=== PATIENT | male | born 1965 | race Caucasian/White ===

== ENCOUNTER 2022-08-14 21:14 | Inpatient (IN) | payer OTHER ==
[~2022-08-14] VITALS: Ht 185.4 cm; Wt 156.2 kg
[2022-08-14 21:21] VITALS: BP_SYST 114
[2022-08-14 23:18] LABS: BASOPHILS # (AUTO) 0.1 K/uL (0.0-0.2); EOSINOPHILS # (AUTO) 0.1 K/uL (0.0-0.4); EOSINOPHILS % (AUTO) 1.9 % (0.0-4.0); HEMOGLOBIN 15.2 g/dL (14.0-18.0); LYMPHOCYTES # (AUTO) 1.6 K/uL (1.0-5.5); LYMPHOCYTES % (AUTO) 27.3 % (20.5-51.5); MEAN CORPUSCULAR HEMOGLOBIN 35 pg (27-31); MEAN CORPUSCULAR HGB CONC 33 % (32-36); MEAN CORPUSCULAR VOLUME 104 fL (79.0-98.0); MONOCYTES # (AUTO) 0.7 K/uL (0.0-1.0); NEUTROPHILS # (AUTO) 3.4 K/uL (1.8-7.7); NEUTROPHILS % (AUTO) 57.8 % (40.0-70.0); PLATELET COUNT (AUTO) 177 K/uL (130-430); RED BLOOD CELL COUNT(AUTO) 4.41 MIL/uL (4.2-6.2); RED CELL DISTRIBUTION WIDTH 15.8 % (9.0-15.0); WHITE BLOOD COUNT (AUTO) 5.9 K/uL (4.8-10.8)
[2022-08-14 23:21] LABS: ANION GAP 4 (5-15); CALCIUM 8.5 mg/dL (8.4-11.0); CHLORIDE 99 mmol/L (98-107); CREATININE 2.06 mg/dL (0.55-1.30); GLUCOSE 141 mg/dL (70-99); UREA NITROGEN, BLOOD 33 mg/dL (8-21)
[2022-08-14 23:30] LABS: ALANINE AMINOTRANSFERASE 20 U/L (12-78); ALBUMIN 3.1 g/dL (3.4-4.8); ASPARTATE AMINOTRANSFERASE 16 U/L (10-37); TOTAL BILIRUBIN 0.6 mg/dL (0.0-1.0)
[2022-08-14 23:36] LABS: GFR AFRICAN AMERICAN 43 mL/min (>90)
[2022-08-15] MEDS ORDERED: ACETAMINOPHEN 500 MG TABLET PO ONE (03:45)
[2022-08-15] MEDS ORDERED: ACETAMINOPHEN 500 MG TABLET ONE (03:47)
[2022-08-15] MEDS ORDERED: APIX5TAB4 PO (08:53)
[2022-08-15] MEDS ORDERED: AMIO200T66 PO (08:53)
[2022-08-15] MEDS ORDERED: FURO80TA86 PO (08:54)
[2022-08-15] MEDS ORDERED: FURO-149 PO (08:54)
[2022-08-15] MEDS ORDERED: LIP40 PO (08:54)
[2022-08-15] MEDS ORDERED: CARV25TA55 PO (08:54)
[2022-08-15] MEDS ORDERED: MONT-40 PO (08:54)
[2022-08-15] MEDS ORDERED: DAPA10TA PO (08:54)
[2022-08-15] MEDS ORDERED: SPIRIVA INH (08:54)
[2022-08-15] MEDS ORDERED: SACU1TAB PO (08:54)
[2022-08-15] MEDS ORDERED: CARV12.548 PO (08:54)
[2022-08-15] MEDS ORDERED: FLO44 INH (08:54)
[2022-08-15] MEDS: FUROSEMIDE 40 MG/4 ML VIAL IVP SCH ×2 (11:30→22:39)
[2022-08-15] MEDS: FLUTICASONE 44 mcg/ACTUATION MDI AER.W.ADAP INH SCH (11:30)
[2022-08-15] MEDS: MONTELUKAST 10 MG TABLET PO SCH (11:30)
[2022-08-15] MEDS: SACUBITRIL/VALSARTAN 24 MG-26 MG 1 TABLET PO SCH (11:30)
[2022-08-15] MEDS ORDERED: FUROSEMIDE 40 MG/4 ML VIAL IVP ONE ×2 (11:30)
[2022-08-15] MEDS ORDERED: AMIODARONE HCL 200 MG TABLET PO SCH (11:30)
[2022-08-15] MEDS: CARVEDILOL 12.5 MG TABLET (COREG) PO SCH (11:30)
[2022-08-15] MEDS: ATORVASTATIN 20 MG TABLET PO SCH (11:30)
[2022-08-15] MEDS ORDERED: IPRATROPIUM/ALBUTEROL SULFATE 3 ML AMPUL.NEB (DUONEB) INH PRN (11:45)
[2022-08-15 13:12] VITALS: BP_SYST 120
[2022-08-15] MEDS: ISOSORBIDE MONONITRATE 30 MG TAB.ER.24H PO SCH (14:00)
[2022-08-15] MEDS ORDERED: traMADol HCL HCL 50 MG TABLET (ULTRAM) PO PRN (18:15)
[2022-08-15] MEDS ORDERED: ACETAMINOPHEN 650 MG/20.3 ML UDC GT PRN (18:15)
[2022-08-15] MEDS ORDERED: CARVEDILOL 6.25 MG TABLET (COREG) ONE (19:35)
[2022-08-15] MEDS ORDERED: FUROSEMIDE 40 MG/4 ML VIAL ONE (19:35)
[2022-08-15] MEDS ORDERED: ACETAMINOPHEN 325 MG TABLET ONE (19:36)
[2022-08-15] MEDS ORDERED: DIPHENHYDRAMINE HCL 50 MG CAPSULE PO ONE (21:15)
[2022-08-15] MEDS: CARVEDILOL 25 MG TABLET (COREG) PO SCH (22:39)
[2022-08-16] VITALS: BP_SYST 137
[2022-08-16 00:58] VITALS: BP_SYST 138
[2022-08-16 07:05] LABS: BASOPHILS % (AUTO) 0.8 % (0.0-2.0); EOSINOPHILS # (AUTO) 0.1 K/uL (0.0-0.4); EOSINOPHILS % (AUTO) 1.7 % (0.0-4.0); HEMATOCRIT 46.2 % (36-54); HEMOGLOBIN 15.2 g/dL (14.0-18.0); LYMPHOCYTES # (AUTO) 1.1 K/uL (1.0-5.5); LYMPHOCYTES % (AUTO) 19.3 % (20.5-51.5); MEAN CORPUSCULAR HEMOGLOBIN 35 pg (27-31); MEAN CORPUSCULAR HGB CONC 33 % (32-36); MEAN CORPUSCULAR VOLUME 105 fL (79.0-98.0); MONOCYTES # (AUTO) 0.6 K/uL (0.0-1.0); MONOCYTES % (AUTO) 11.5 % (1.7-9.3); NEUTROPHILS # (AUTO) 3.7 K/uL (1.8-7.7); NEUTROPHILS % (AUTO) 66.7 % (40.0-70.0); PLATELET COUNT (AUTO) 159 K/uL (130-430); RED BLOOD CELL COUNT(AUTO) 4.41 MIL/uL (4.2-6.2); RED CELL DISTRIBUTION WIDTH 16.2 % (9.0-15.0); WHITE BLOOD COUNT (AUTO) 5.5 K/uL (4.8-10.8)
[2022-08-16 07:31] LABS: INR 1.1 (0.80-1.20)
[2022-08-16 07:50] LABS: ALBUMIN 3.3 g/dL (3.4-4.8); CALCIUM 8.2 mg/dL (8.4-11.0); CREATININE 1.95 mg/dL (0.55-1.30); PHOSPHORUS 4.1 mg/dL (2.7-4.5); THYROID STIMULATING HORMONE 2.18 uIu/mL (0.34-4.82); TOTAL BILIRUBIN 0.7 mg/dL (0.0-1.0)
[2022-08-16 08:00] VITALS: BP_SYST 139
[2022-08-16] MEDS: SACUBITRIL/VALSARTAN 24 MG-26 MG 1 TABLET PO SCH (08:48)
[2022-08-16] MEDS: FUROSEMIDE 40 MG/4 ML VIAL IVP SCH ×2 (08:49→22:03)
[2022-08-16] MEDS: CARVEDILOL 12.5 MG TABLET (COREG) PO SCH (08:49)
[2022-08-16] MEDS: ISOSORBIDE MONONITRATE 30 MG TAB.ER.24H PO SCH (08:49)
[2022-08-16] MEDS: MONTELUKAST 10 MG TABLET PO SCH (08:50)
[2022-08-16] MEDS: ATORVASTATIN 20 MG TABLET PO SCH (08:50)
[2022-08-16] MEDS ORDERED: NON-FORMULARY MEDICATION (Dapagliflozin Propanediol (Farxiga) 10 MG) PO SCH (09:00)
[2022-08-16] MEDS ORDERED: TIOTROPIUM BROMIDE 18 mcg/INHALATION (CAPSULE) INH SCH (09:00)
[2022-08-16] MEDS: FLUTICASONE 44 mcg/ACTUATION MDI AER.W.ADAP INH SCH (09:00)
[2022-08-16] MEDS ORDERED: APIXABAN 2.5 MG TABLET PO ONE (11:00)
[2022-08-16 13:21] VITALS: BP_SYST 115
[2022-08-16] MEDS: IPRATROPIUM BROM 0.5 MG/2.5 ML VIAL.NEB (ATROVENT) INH SCH ×2 (15:46→19:52)
[2022-08-16 21:00] VITALS: BP_SYST 137
[2022-08-16] MEDS: APIXABAN 2.5 MG TABLET PO SCH (22:01)
[2022-08-16] MEDS: CARVEDILOL 25 MG TABLET (COREG) PO SCH (22:03)
[2022-08-17] MEDS: IPRATROPIUM BROM 0.5 MG/2.5 ML VIAL.NEB (ATROVENT) INH SCH ×3 (01:01→13:27)
[2022-08-17 02:00] VITALS: BP_SYST 119
[2022-08-17 07:04] LABS: EOSINOPHILS # (AUTO) 0.1 K/uL (0.0-0.4); EOSINOPHILS % (AUTO) 2.4 % (0.0-4.0); HEMATOCRIT 47.3 % (36-54); HEMOGLOBIN 15.6 g/dL (14.0-18.0); LYMPHOCYTES # (AUTO) 1.1 K/uL (1.0-5.5); MEAN CORPUSCULAR HEMOGLOBIN 34 pg (27-31); MEAN CORPUSCULAR HGB CONC 33 % (32-36); MEAN CORPUSCULAR VOLUME 104 fL (79.0-98.0); MONOCYTES # (AUTO) 0.7 K/uL (0.0-1.0); NEUTROPHILS # (AUTO) 2.9 K/uL (1.8-7.7); NEUTROPHILS % (AUTO) 60.6 % (40.0-70.0); PLATELET COUNT (AUTO) 164 K/uL (130-430); RED BLOOD CELL COUNT(AUTO) 4.54 MIL/uL (4.2-6.2); RED CELL DISTRIBUTION WIDTH 15.7 % (9.0-15.0); WHITE BLOOD COUNT (AUTO) 4.8 K/uL (4.8-10.8)
[2022-08-17 07:17] LABS: CALCIUM 8.4 mg/dL (8.4-11.0); CREATININE 1.75 mg/dL (0.55-1.30)
[2022-08-17 08:00] VITALS: BP_SYST 131
[2022-08-17] MEDS: CARVEDILOL 12.5 MG TABLET (COREG) PO SCH (08:44)
[2022-08-17] MEDS: ISOSORBIDE MONONITRATE 30 MG TAB.ER.24H PO SCH (08:45)
[2022-08-17] MEDS: APIXABAN 2.5 MG TABLET PO SCH (08:45)
[2022-08-17] MEDS: ATORVASTATIN 20 MG TABLET PO SCH (08:45)
[2022-08-17] MEDS: FUROSEMIDE 40 MG/4 ML VIAL IVP SCH (08:46)
[2022-08-17] MEDS: MONTELUKAST 10 MG TABLET PO SCH (08:46)
[2022-08-17] MEDS: SACUBITRIL/VALSARTAN 24 MG-26 MG 1 TABLET PO SCH (08:49)
[2022-08-17 11:35] VITALS: BP_SYST 123
[2022-08-17 15:47] VITALS: BP_SYST 120
[2022-08-17 17:47] VITALS: BP_SYST 120
== END 2022-08-17 18:40 | disposition home health service (06) | DRG 133 ==
LOC: SED 21:14 → STU 08-15 04:17
PROVIDERS: ADMIT Internal Medicine; ATTEND Internal Medicine
DX: J96.01 Acute respiratory failure with hypoxia (principal); N17.0 Acute kidney failure with tubular necrosis; I50.43 Acute on chronic combined systolic (congestive) and diastolic (congestive) heart failure; E44.1 Mild protein-calorie malnutrition; I13.0 Hypertensive heart and chronic kidney disease with heart failure and stage 1 through stage 4 chronic kidney disease, or unspecified chronic kidney disease; Z93.0 Tracheostomy status; E78.5 Hyperlipidemia, unspecified; G47.33 Obstructive sleep apnea (adult) (pediatric); N18.9 Chronic kidney disease, unspecified; J44.9 Chronic obstructive pulmonary disease, unspecified; I25.10 Atherosclerotic heart disease of native coronary artery without angina pectoris; Z20.822 Contact with and (suspected) exposure to COVID-19; E66.01 Morbid (severe) obesity due to excess calories; Z68.42 Body mass index [BMI] 45.0-49.9, adult; Z79.899 Other long term (current) drug therapy; Z79.01 Long term (current) use of anticoagulants; Z93.1 Gastrostomy status
CPT/HCPCS: 36415; 71045; 71250-TC; 76376; 80048; 80053; 83735; 83880; 84100; 84439; 84443; 84484; 85025; 85379; 85610-TC; 85730-TC; 93005; 93306; 93970; 94640; 94760; 96374; 96376; 99285; G0378; J1940; Q0163